=== PATIENT | male | born 1985 | race American Indian/Alaskan Native ===

== ENCOUNTER 2016-09-30 05:43 | Emergency (ER) | payer BC ==
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
[2016-09-30 09:29] VITALS: BP 124/76
== END 2016-09-30 09:15 | disposition home or self-care (01) ==
LOC: ED 05:43
DX: L50.9 Urticaria, unspecified (principal); F17.200 Nicotine dependence, unspecified, uncomplicated
CPT/HCPCS: 96372; 99282; J2930

== ENCOUNTER 2017-06-10 23:40 | Emergency (ER) | payer BC ==
--- NOTE | 2017-06-11 01:42 | XRay Report ---
FINAL REPORT EXAM: XR SPINE LUMBOSACRAL 2-3V HISTORY: back pain TECHNIQUE: Three views of the lumbar spine were submitted. FINDINGS: There are 6 [id number] lumbar vertebral bodies. There is a mild dextroscoliosis. There is bdzx-hj-zkmtiatj narrowing of the L5-L6 disc. There is no evidence of fracture. The SI joints appear normal. The soft tissues are well maintained. IMPRESSION: Mild disc degeneration in the lower lumbar spine. No other significant findings.
--- NOTE | 2017-06-11 01:42 | XRay Report ---
FINAL REPORT EXAM: XR SPINE CERVICAL 2-3V HISTORY: neck pain TECHNIQUE: Four views of the cervical spine were submitted. FINDINGS: There is a mild dextroscoliosis. There is mild narrowing of the C4-C5 and C5-C6 disc. The alignment appears normal. The prevertebral soft tissues and C1-C2 articulation appear intact. IMPRESSION: Mild dextro cysts with mild disc degeneration in the mid cervical spine.
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
[2017-06-11 04:28] VITALS: BP 134/87
== END 2017-06-11 03:00 | disposition home or self-care (01) ==
LOC: ED 23:40
DX: M25.512 Pain in left shoulder (principal); M25.511 Pain in right shoulder; M54.2 Cervicalgia; M47.9 Spondylosis, unspecified; F17.200 Nicotine dependence, unspecified, uncomplicated
CPT/HCPCS: 72040; 72100; 99283

== ENCOUNTER 2019-03-09 21:11 | Emergency (ER) | payer BC, OTHER ==
[2019-03-09 21:46] VITALS: BP 147/83
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
== END 2019-03-10 02:20 | disposition home or self-care (01) ==
LOC: ED 21:11
DX: M25.511 Pain in right shoulder (principal); R51 Headache; Z98.890 Other specified postprocedural states; Z79.899 Other long term (current) drug therapy; V49.59XA Passenger injured in collision with other motor vehicles in traffic accident, initial encounter; Y93.89 Activity, other specified; Y92.410 Unspecified street and highway as the place of occurrence of the external cause; Y99.8 Other external cause status
CPT/HCPCS: 70450